=== PATIENT | female | born 1985 | race Caucasian/White ===

== ENCOUNTER 2016-10-07 04:20 | Emergency (ER) | payer OTHER | END 2016-10-07 05:00 | disposition home or self-care (01) | LOC: FER 04:20 | DX: L03.90 Cellulitis, unspecified (principal) | CPT/HCPCS: 99283 ==

== ENCOUNTER 2021-02-11 17:48 | Emergency (ER) | payer OTHER ==
[~2021-02-11 17:48] MED LIST: MOTRIN600 MG PO
== END 2021-02-11 19:57 | disposition home or self-care (01) ==
LOC: FER 17:48
DX: S01.01XA Laceration without foreign body of scalp, initial encounter (principal); S09.90XA Unspecified injury of head, initial encounter; F17.210 Nicotine dependence, cigarettes, uncomplicated; Z91.040 Latex allergy status; Y00.XXXA Assault by blunt object, initial encounter
CPT/HCPCS: 70450; 72125

== ENCOUNTER 2021-02-22 17:53 | Emergency (ER) | payer OTHER | END 2021-02-22 19:00 | disposition home or self-care (01) | LOC: FER 17:53 | DX: S01.01XD Laceration without foreign body of scalp, subsequent encounter (principal); W22.8XXD Striking against or struck by other objects, subsequent encounter | CPT/HCPCS: 99281 ==

== ENCOUNTER 2021-04-15 14:34 | Emergency (ER) | payer OTHER ==
[2021-04-15 15:59] LABS: BASOPHIL 0.3 % (0-2); EOSINOPHIL 0.9 % (0-5); HCT 40.5 % (37.0-47.0); HGB 13.7 g/dl (12.5-16.0); LYMPHOCYTE 25.4 % (15-48); MCH 30.4 pg (25.0-31.0); MCHC 33.8 g/dL (32.0-36.0); MONOCYTE 5.8 % (0-12); MPV 9.9 fL (6.0-9.5); NEUTROPHIL 67.2 % (41-80); NRBC 0; PLT 307 K/uL (150-400); RDW 13.3 % (11.5-14.0); WBC 9.4 K/uL (4.0-10.5)
[2021-04-15 16:19] LABS: BILIRUBIN - TOTAL 0.9 mg/dL (0.2-1.0); BUN/CREAT RATIO (CALC) 18.7 RATIO; CREATININE 0.75 mg/dL (0.51-0.95); GLOBULIN (CALCULATION) 4.1 g/dL; POTASSIUM 3.3 mmol/L (3.5-5.1); TOTAL PROTEIN 8.1 g/dL (6.4-8.2)
[2021-04-15 17:21] LABS: BILIRUBIN 3+ mg/dL (NEGATIVE); BLOOD 3+ Ery/uL (NEGATIVE); CLARITY CLOUDY (CLEAR); COLOR BROWN (YELLOW); GLUCOSE (U) NORMAL (NORMAL); LEUKOCYTES 1+ Leu/uL (NEGATIVE); NITRITE POSITIVE (NEGATIVE); PROTEIN 3+ mg/dL (NEGATIVE); SPECIFIC GRAVITY >=1.030 (1.001-1.030); pH 6.5 (5.0-9.0)
[2021-04-15 17:28] LABS: BACTERIA 3+; URINARY RBC TNTC; URINARY WBC 20-50
[2021-04-15] MEDS ORDERED: ZOFRAN4 M1 PO (20:12)
[2021-04-15] MEDS ORDERED: CEFDINIR300 M1 PO (20:12)
[2021-04-15] MEDS ORDERED: MOTRIN600 MG PO (20:12)
== END 2021-04-15 20:23 | disposition home or self-care (01) ==
LOC: FER 14:34
PROVIDERS: Emergency Medicine; Physician Assistant
DX: N10 Acute pyelonephritis (principal); F17.210 Nicotine dependence, cigarettes, uncomplicated; Z20.822 Contact with and (suspected) exposure to COVID-19
CPT/HCPCS: 36415; 80053; 81001; 84702; 85025; 86900; 86901; J0696; J1885; J2405; J7030; U0002